=== PATIENT | female | born 1990 | race Caucasian/White ===

== ENCOUNTER 2025-09-26 13:20 | Day surgery (SDC) | payer OTHER ==
[2025-09-26] MEDS ORDERED: LIDOCAINE HCL 2% 100 MG/5 ML IJ ONE (13:21)
[2025-09-26 14:08] LABS: HCG URINE TEST NEGATIVE (NEGATIVE)
[2025-09-26] MEDS ORDERED: propofoL IV ONE (15:40)
--- NOTE | 2025-09-26 17:20 | XRAY ---
Indication: Left C2-C4 MBB. Intraoperative fluoroscopy provided for 16 seconds. 2 digital spot image submitted for interpretation demonstrates posterior needle tips projecting over expected left C2-C4 nerve roots. Correlate with intraoperative findings/report.
[2025-09-26] MEDS ORDERED: Lactated Ringers 1,000 ML IV ONE (17:25)
--- NOTE | 2025-09-26 17:35 | XRAY ---
16 seconds of fluoroscopy were used in surgery for a left C2-C4 MBB.
== END 2025-09-26 16:15 | disposition home or self-care (01) ==
LOC: SDC-PAIN 13:20
PROVIDERS: ATTEND Psychiatry & Neurology Pain Medicine
DX: M47.812 Spondylosis without myelopathy or radiculopathy, cervical region (principal)